=== PATIENT | female | born 1950 | race Caucasian/White ===

== ENCOUNTER 2019-08-21 10:01 | Emergency (ER) | payer MEDICARE, BC ==
[2019-08-21] MEDS ORDERED: HYDROmorphone 0.5 MG/0.5 ML Syringe IM ONE (11:21)
--- NOTE | 2019-08-21 11:50 | EDM.PDOC ---
ED HPI GENERAL MEDICAL PROBLEM - General Chief Complaint: Back Pain or Injury Stated Complaint: BACK PAIN Time Seen by Provider: 08/21/19 11:02 Source of Information: Reports: Patient, Family (father) History Limitations: Reports: No Limitations - History of Present Illness INITIAL COMMENTS - FREE TEXT/NARRATIVE: Patient is a 69-year-old female who presents to the ED for evaluation of a lower back injury. The patient states she was doing some yard work about 15 days ago, and wrenched her lower back. The patient states that the pain was getting better, but 5 days ago the pain worsened again. She states that the pain worsens with any sort of movement, she states she had a rough night sleeping last knee she was not able to find a comfortable position much. She has been icing her back, she states that heat makes the pain worse. She notes this to be a deep burning pain to her back, slightly to the right side. She denies any fall or trauma. She has been taking Advil, Flexeril, Soma, and aspirin with minimal relief. She last took a Flexeril this morning at 5, and Advil at 8. The patient's primary care provider is Gina Solano out of [facility] in [place]. She suggested getting some sort of imaging to the area , but the patient declined at that time. She states that the pain has worsened since she saw the PCP and was wondering if she hurt her back more than she thought she did. She denies any saddle anesthesia, bowel or bladder incontinence. She denies any other fevers or chills, chest pain or shortness of breath, nausea or vomiting or diarrhea. Right Middle Back Pain Score (Numeric/FACES): 8 - Related Data Allergies Allergy/AdvReac Type Severity Reaction Status Date / Time Sulfa (Sulfonamide Allergy Cannot Verified 08/21/19 10:08 Antibiotics) Remember Home Meds: Home Meds Levothyroxine Sodium [Synthroid] 75 mcg PO DAILY 02/08/14 [History] Rosuvastatin [Crestor] 5 mg PO DAILY 02/08/14 [History] predniSONE 20 mg PO ASDIRECTED #15 tab 08/21/19 [Rx] traMADol [Ultram] 50 mg PO Q6H PRN #28 tab 08/21/19 [Rx] Past Medical History HEENT History: Reports: Cataract, Impaired Vision Other HEENT History: wears eyeglasses. Cardiovascular History: Reports: High Cholesterol Gastrointestinal History: Reports: Diverticulosis Genitourinary History: Reports: Pyelonephritis, UTI, Recurrent [employer] History: Reports: Musculoskeletal History: Reports: Back Pain, Chronic Other Musculoskeletal History: occasional back issues, spasms. Endocrine/Metabolic History: Reports: Hypothyroidism Oncologic (Cancer) History: Reports: Basal Cell Carcinoma - Infectious Disease History Infectious Disease History: Reports: Chicken Pox, Measles, Mumps - Past Surgical History HEENT Surgical History: Reports: Cataract Surgery GI Surgical History: Reports: Cholecystectomy Female Surgical History: Reports: Hysterectomy Other Oncologic Surgeries/Procedures: basal cell removed from nose. Social & Family History - Tobacco Use Smoking Status *Q: Never Smoker Second Hand Smoke Exposure: No - Caffeine Use Caffeine Use: Reports: Coffee - Recreational Drug Use Recreational Drug Use: No ED ROS GENERAL - Review of Systems Review Of Systems: See Below Constitutional: Denies: Fever, Chills HEENT: Reports: No Symptoms Respiratory: Denies: Shortness of Breath Cardiovascular: Denies: Chest Pain Endocrine: Reports: No Symptoms GI/Abdominal: Denies: Abdominal Pain, Constipation, Nausea, Vomiting : Denies: Incontinence Musculoskeletal: Reports: Back Pain, Muscle Pain (and spasms) Skin: Reports: No Symptoms Neurological: Reports: No Symptoms Psychiatric: Reports: No Symptoms Hematologic/Lymphatic: Reports: No Symptoms Immunologic: Reports: No Symptoms ED EXAM,LOWER BACK PAIN/INJURY - Physical Exam Exam: See Below Exam Limited By: No Limitations General Appearance: Alert, WD/WN, No Apparent Distress (pt appears to be in pain on ED cot, and seems to have a hard time finding a comfortable position.) Throat/Mouth: Normal Inspection, Normal Lips, Normal Teeth, Normal Gums, Normal Oropharynx, Normal Voice, No Airway Compromise Head: Atraumatic, Normocephalic Neck: Normal Inspection, Supple, Non-Tender, Full Range of Motion Respiratory/Chest: No Respiratory Distress, Lungs Clear, Normal Breath Sounds, No Accessory Muscle Use, Chest Non-Tender Cardiovascular: Normal Peripheral Pulses, Regular Rate, Rhythm, No Murmur GI/Abdominal: Normal Bowel Sounds, Soft, Non-Tender, No Distention, No Mass Extremities: Normal Inspection, Normal Capillary Refill Neurological: Alert, Normal Mood/Affect, Normal Dorsiflexion, Normal Plantar Flexion, Normal Gait, Oriented x 3. No: Straight Leg Raise (L), Straight Leg Raise (R), Saddle Anesthesia Psychiatric: Normal Affect, Normal Mood Skin Exam: Warm, Dry, Intact, Normal Color, No Rash Course - Vital Signs Last Recorded V/S: Last Vital Signs Temp 98.0 F 08/21/19 10:05 Pulse 72 08/21/19 10:05 Resp 20 08/21/19 10:05 BP 104/68 08/21/19 10:05 Pulse Ox 100 08/21/19 10:05 - Orders/Labs/Meds Labs: Laboratory Tests 08/21/19 Range/Units 10:00 Urine Color Yellow (Yellow) Urine Appearance Clear (Clear) Urine pH 6.5 (5.0-8.0) Ur Specific [place] 1.010 (1.005-1.030) Urine Protein Negative (Negative) Urine Glucose (UA) Negative (Negative) Urine Ketones Negative (Negative) Urine Occult Blood Negative (Negative) Urine Nitrite Negative (Negative) Urine Bilirubin Negative (Negative) Urine Urobilinogen 0.2 (0.2-1.0) Ur Leukocyte Esterase Trace H (Negative) Urine RBC 0-5 (0-5) /hpf Urine WBC 5-10 H (0-5) /hpf Ur Squamous Epith Cells 0-5 (0-5) /hpf Urine Bacteria Few (FEW) /hpf Urine Mucus Rare (FEW) /hpf Meds: Medications Discontinued Medications Generic Name Dose Route Start Last Admin Trade Name Freq PRN Reason Stop Dose Admin Hydromorphone HCl 0.5 mg 08/21/19 11:21 08/21/19 11:26 Dilaudid IM 08/21/19 11:22 0.5 mg ONETIME ONE Administration - Radiology Interpretation Free Text/Narrative:: CT lumbar spine Technique: Multiple axial sections were obtained from the lower T11 level inferiorly to the lower sacral level. Reconstructed sagittal and coronal images were reviewed. Comparison: No prior lumbar spine imaging is available. Findings: T11-12: Posterior disc is preserved. No central canal stenosis or neural foraminal stenosis is seen. T12-L1: Posterior disc is preserved. No central canal stenosis or neural foraminal stenosis is seen. L1-L2: Very minimal circumferential disc bulge is seen. Posterior disc maintains a concave margin. No central canal stenosis or neural foraminal stenosis is seen. L2-L3: Mild disc space narrowing is noted. Moderate circumferential disc bulge is seen. Posterior disc maintains a minimally concave margin. Mild degenerative apophyseal change is noted. No central canal stenosis or neural foraminal stenosis is seen. L3-L4: Circumferential disc bulge is seen. Mild degenerative apophyseal change is noted. No central canal stenosis or neural foraminal stenosis is seen. L4-L5: Mild circumferential disc bulge is noted. No central canal stenosis or neural foraminal stenosis is seen. L5-S1: Moderate disc space narrowing noted. Mild diffuse posterior disc bulge is noted. No central canal stenosis or neural foraminal stenosis is seen. Mild degenerative apophyseal change is seen. Atherosclerotic change is seen within the aorta. No fracture seen within the lumbar spine. Impression: 1. Mild diffuse disc bulging as noted above. No central canal stenosis or neural foraminal stenosis is seen. No focal disc herniation is seen. 2. Mild degenerative apophyseal change is seen. - Re-Assessments/Exams Free Text/Narrative Re-Assessment/Exam: 08/21/19 11:15 Patient presents to the ED for the evaluation of back pain. I did order a CT, and a urinalysis was obtained by triage nurse. Patient will be given 0.5 mg IM Dilaudid for initial management. 08/21/19 13:[address] demonstrated multiple bulged disks, but no herniations. I will give the patient Ever CT results and have her follow-up with her primary care physician, I will provide her with a prednisone burst and tramadol prescription for management of her pain at home. Departure - Departure Time of Disposition: 13:31 Disposition: Home, Self-Care 01 Condition: Fair Clinical Impression: Back pain Qualifiers: Back pain location: low back pain Chronicity: acute Back pain laterality: right Sciatica presence: without sciatica Qualified Code(s): M54.5 - Low back pain - Discharge Information *PRESCRIPTION DRUG MONITORING PROGRAM REVIEWED*: No *COPY OF PRESCRIPTION DRUG MONITORING REPORT IN PATIENT BYRON: No Prescriptions: predniSONE 20 mg PO ASDIRECTED #15 tab traMADol [Ultram] 50 mg PO Q6H PRN #28 tab PRN Reason: Pain Instructions: Back Injury Prevention, [id number] Referrals: PCP,None [Ordering Only Provider] - Forms: ED Department Discharge Additional Instructions: You have been evaluated in the ED for your lower back pain. Your CT demonstrated multiple bulged discs, but no herniations. A copy of the CT results has been provided to you for follow up with your primary care provider. Please use ice/heat as tolerated to the affected area. You have been given a prescription for prednisone, please take as directed, and a prescription for tramadol, please take one tab every 6 hours as needed for further pain relief. This medication can be somewhat constipating, recommend that you take a stool softener to help guard against constipation. Recommend follow-up with your primary care provider, for further management, regarding a possible neurosurgery consult regarding your low bulged disks. Please take your CT results with you at that visit. Please return to ED if your symptoms should change or worsen.
--- NOTE | 2019-08-21 12:47 | CT ---
CT lumbar spine Technique: Multiple axial sections were obtained from the lower T11 level inferiorly to the lower sacral level. Reconstructed sagittal and coronal images were reviewed. Comparison: No prior lumbar spine imaging is available. Findings: T11-12: Posterior disc is preserved. No central canal stenosis or neural foraminal stenosis is seen. T12-L1: Posterior disc is preserved. No central canal stenosis or neural foraminal stenosis is seen. L1-L2: Very minimal circumferential disc bulge is seen. Posterior disc maintains a concave margin. No central canal stenosis or neural foraminal stenosis is seen. L2-L3: Mild disc space narrowing is noted. Moderate circumferential disc bulge is seen. Posterior disc maintains a minimally concave margin. Mild degenerative apophyseal change is noted. No central canal stenosis or neural foraminal stenosis is seen. L3-L4: Circumferential disc bulge is seen. Mild degenerative apophyseal change is noted. No central canal stenosis or neural foraminal stenosis is seen. L4-L5: Mild circumferential disc bulge is noted. No central canal stenosis or neural foraminal stenosis is seen. L5-S1: Moderate disc space narrowing noted. Mild diffuse posterior disc bulge is noted. No central canal stenosis or neural foraminal stenosis is seen. Mild degenerative apophyseal change is seen. Atherosclerotic change is seen within the aorta. No fracture seen within the lumbar spine. Impression: 1. Mild diffuse disc bulging as noted above. No central canal stenosis or neural foraminal stenosis is seen. No focal disc herniation is seen. 2. Mild degenerative apophyseal change is seen. Diagnostic code #3
== END 2019-08-21 13:55 | disposition home or self-care (01) ==
LOC: JD.ED 10:01
DX: M54.5 Low back pain (principal); E78.00 Pure hypercholesterolemia, unspecified; E03.9 Hypothyroidism, unspecified; Z88.2 Allergy status to sulfonamides; Z79.899 Other long term (current) drug therapy; Z79.890 Hormone replacement therapy
CPT/HCPCS: 72131; 81001; 96372; 99283; J1170

== ENCOUNTER 2019-09-11 10:19 | Emergency (ER) | payer MEDICARE, BC ==
--- NOTE | 2019-09-11 11:20 | EDM.PDOC ---
<Alfredo Barajas - Last Filed: 09/11/19 11:28> ED HPI GENERAL MEDICAL PROBLEM - General Chief Complaint: Back Pain or Injury Stated Complaint: SIDE AND BACK PAIN Time Seen by Provider: 09/11/19 10:36 Source of Information: Reports: Patient History Limitations: Reports: No Limitations - History of Present Illness INITIAL COMMENTS - FREE TEXT/NARRATIVE: 69 year old white female who presents to the emergency department with complaints of left lower back pain resulting from a fall. The patient was going down a flight of stairs when she slipped on a piece of cardboard that was laying on the ground and her right leg went out laterally and her left leg buckled under her and she fell backwards and hit her left mid and lower back on the steps. Pt states that she was seen at physical therapy yesterday as she is being treated on on prior back injury from the 21 of August, and they recommended that she be seen to make sure she doesn't have a broken rib. She states that she is having terrible spasms in her left lower back, these spasms occur with deep breaths, getting up from a sitting position, or with ambulation. Last night her spasms were very painful so she took a tramadol and a flexeril and this did not help so she slept in the recliner the remainder of the night. Left Back Pain Score (Numeric/FACES): 0 - Related Data Allergies Allergy/AdvReac Type Severity Reaction Status Date / Time Sulfa (Sulfonamide Allergy Cannot Verified 09/11/19 10:36 Antibiotics) Remember Home Meds: Home Meds Levothyroxine Sodium [Synthroid] 75 mcg PO DAILY 02/08/14 [History] Rosuvastatin [Crestor] 5 mg PO DAILY 02/08/14 [History] traMADol [Ultram] 50 mg PO Q6H PRN #28 tab 08/21/19 [Rx] Cyclobenzaprine [Flexeril] 10 mg PO TID 09/11/19 [History] traMADol [Ultram] 50 mg PO Q6H PRN #36 tab 09/11/19 [Rx] Past Medical History HEENT History: Reports: Cataract, Impaired Vision Other HEENT History: wears eyeglasses. Cardiovascular History: Reports: High Cholesterol Gastrointestinal History: Reports: Diverticulosis Genitourinary History: Reports: Pyelonephritis, UTI, Recurrent [employer] History: Reports: Musculoskeletal History: Reports: Back Pain, Chronic Other Musculoskeletal History: occasional back issues, spasms. Endocrine/Metabolic History: Reports: Hypothyroidism Oncologic (Cancer) History: Reports: Basal Cell Carcinoma - Infectious Disease History Infectious Disease History: Reports: Chicken Pox, Measles, Mumps - Past Surgical History HEENT Surgical History: Reports: Cataract Surgery GI Surgical History: Reports: Cholecystectomy Female Surgical History: Reports: Hysterectomy Other Oncologic Surgeries/Procedures: basal cell removed from nose. Social & Family History - Tobacco Use Smoking Status *Q: Never Smoker - Caffeine Use Caffeine Use: Reports: Coffee Caffeine Use Comment: one cup a day - Recreational Drug Use Drug Use in Last 12 Months: No ED ROS GENERAL - Review of Systems Review Of Systems: See Below Constitutional: Reports: No Symptoms HEENT: Reports: No Symptoms Respiratory: Reports: No Symptoms, Other (unable to take a deep breath due to muscle spasm that occurs to the left lower back.). Denies: Shortness of Breath , Wheezing, Cough, Sputum Cardiovascular: Reports: No Symptoms Endocrine: Reports: No Symptoms GI/Abdominal: Reports: No Symptoms : Reports: No Symptoms Musculoskeletal: Reports: Back Pain, Other (left low back pain with spasms) Skin: Reports: No Symptoms, Other (no bruising noted to lower back) Neurological: Reports: No Symptoms Hematologic/Lymphatic: Reports: No Symptoms Immunologic: Reports: No Symptoms ED EXAM,LOWER BACK PAIN/INJURY - Physical Exam Exam: See Below Exam Limited By: No Limitations General Appearance: Alert, WD/WN, No Apparent Distress Ears: Normal External Exam, Hearing Grossly Normal Nose: Normal Inspection Throat/Mouth: Normal Inspection, Normal Lips, Normal Voice, No Airway Compromise Head: Atraumatic, Normocephalic Neck: Normal Inspection, Supple, Non-Tender, Full Range of Motion. No: Tender Lateral, Tender Midline Respiratory/Chest: No Respiratory Distress, Lungs Clear, Normal Breath Sounds, Chest Non-Tender, Splinting, Other (unable to take a full deep breath due to muscle spasms occurring in left lower paraspinal area) Cardiovascular: Normal Peripheral Pulses, Regular Rate, Rhythm, No Edema, No Murmur GI/Abdominal: Normal Bowel Sounds, Soft, Non-Tender (Female) Exam: Deferred Rectal (Female) Exam: Deferred Back Exam: Normal Inspection, Muscle Spasm (left lateral lumbar), Paraspinal Tenderness (left paraspinal tenderness) Extremities: Normal Inspection, Normal Range of Motion, Non-Tender, No Pedal Edema, Normal Capillary Refill Neurological: Alert, Normal Mood/Affect, Oriented x 3 Psychiatric: Normal Affect, Normal Mood Skin Exam: Warm, Dry, Intact, Normal Color, No Rash Lymphatic: No Adenopathy Course - Vital Signs Last Recorded V/S: Last Vital Signs Temp 37.1 C 09/11/19 10:36 Pulse 72 09/11/19 10:36 Resp 16 09/11/19 10:36 BP 118/72 09/11/19 10:36 Pulse Ox - Re-Assessments/Exams Free Text/Narrative Re-Assessment/Exam: 09/11/19 11:[address] Ayala, I have ordered a CT of the chest without contrast. Departure - Departure Disposition: Home, Self-Care 01 Clinical Impression: Compression fracture of first lumbar vertebra Qualifiers: Encounter type: initial encounter Qualified Code(s): S32.010A - Wedge compression fracture of first lumbar vertebra, initial encounter for closed fracture - Discharge Information Prescriptions: traMADol [Ultram] 50 mg PO Q6H PRN #36 tab PRN Reason: Vertebral compression fracture Referrals: PCP,Not In Area [Primary Care Provider] - Forms: ED Department Discharge Additional Instructions: Evaluation the emergency room today in regards to development of gradually worsening pain lower back--dense fall on Tuesday, September 07. CT of the lumbar spine was compared to the one done on August 21 and he reveals a superior endplate fracture of the lumbar 1 vertebra in your lower back. At present this is approximately 15-20% compression fracture. This is the cause of current pain radiating to the left side of your flank and back. Ribs were identified lungs were clear. It is therefore to continue tramadol 50 mg to 100 mg every 6 hours needed for pain relief. Continue MiraLAX powder 17 g or 1 scoop every day to prevent constipation from occurring while on the pain pills. An appointment will be made with neurosurgeon Dr. Colon at [facility] in [facility] to discuss possible surgical options of a kyphoplasty to relieve your severe pain. <Andriy Ayala - Last Filed: 09/11/19 13:15> Course - Radiology Interpretation Free Text/Narrative:: 69-year-old female was seen and examined initially by nurse practitioner student Charlene Garcia. I subsequently have examined the patient and went over her findings by CT exam with a new compression fracture of the superior endplate of lumbar 1. She believes tramadol strong enough to control her pain and therefore we will refill this prescription. I will make an appointment for her to see neurosurgeon Dr. Colon in [place] at [place] to decide if she is a candidate for kyphoplasty. - Re-Assessments/Exams Free Text/Narrative Re-Assessment/Exam: 09/11/19 12:21 CT scan of the chest is been completed. Aorta shows mild atherosclerotic calcification without any aneurysmal development. Mediastinal and hilar regions show no adenopathy. No pericardial fluid is seen. Several cysts are identified within the liver. No other discrete abnormalities seen within the upper abdomen. The lungs show no acute parenchymal changes. No pleural effusions are seen. No pneumothorax is identified. Mild superior endplate concavity is appreciated with lung lumbar 1. This is an interval change from prior CT lumbar spine study of August 21. Minimal areas of anterior wedging are seen within the mid thoracic spine which are more likely old in age although MRI would need to be done to confirm this. 09/11/19 12:38 spoke to this lady and her at length. Decision made to refer her to Dr. Colon neurosurgeon at [facility] in [facility] to discuss options in regards to possible kyphoplasty. He feels that the tramadol 50 mg every 6 hours at present is working well for pain relief. I will refill this prescription. 09/11/19 13:12 [address] discussion with Dr[address] Colon 's office he wishes to look at the CT scan first and then call the patient directly to arrange an appointment. Therefore Mrs. Escalante will be discharged home. Departure - Departure Time of Disposition: 12:39 Condition: Fair - Discharge Information *PRESCRIPTION DRUG MONITORING PROGRAM REVIEWED*: Not Applicable *COPY OF PRESCRIPTION DRUG MONITORING REPORT IN PATIENT BYRON: Not Applicable
--- NOTE | 2019-09-11 11:59 | CT ---
CT chest Technique: Multiple axial sections were obtained from above the lung apices inferiorly through the lung bases. Intravenous contrast not utilized. Comparison: No prior chest CT is available. Findings: Aorta shows mild atherosclerotic calcification without aneurysm. Mediastinum and hilar regions show no adenopathy. No pericardial fluid is seen. Several cysts are noted within the liver. No other discrete abnormality is seen within the upper abdomen. Lungs show no acute parenchymal change. No pleural effusions are seen. No pneumothorax is identified. Mild superior endplate concavity is seen within L1. This is an interval change from prior CT lumbar spine study of 08/21/19. Minimal areas of anterior wedging are seen within the mid thoracic spine which are more likely old in age although MRI would be needed to confirm. Slight degenerative change is scattered within the spine. Impression: 1. Mild endplate concavity superiorly within L1 which is an interval change from prior lumbar spine CT and is likely acute. 2. Minimal anterior wedging within the mid thoracic spine most likely old although MRI would be needed to confirm. 3. No other acute abnormality is appreciated on noncontrast CT study of the chest. Diagnostic code #3
== END 2019-09-11 13:26 | disposition home or self-care (01) ==
LOC: JD.ED 10:19
DX: S32.019A Unspecified fracture of first lumbar vertebra, initial encounter for closed fracture (principal); E78.00 Pure hypercholesterolemia, unspecified; E03.9 Hypothyroidism, unspecified; Z88.2 Allergy status to sulfonamides; Z79.899 Other long term (current) drug therapy; W10.8XXA Fall (on) (from) other stairs and steps, initial encounter
CPT/HCPCS: 71250; 71250-26; 99283; 99283-25